=== PATIENT | female | born 1965 | race African-American/Black ===

== ENCOUNTER 2021-12-30 18:05 | Emergency (ER) | payer BC, MEDICAID, OTHER ==
[~2021-12-30] VITALS: Ht 165.1 cm; Wt 115.0 kg
[2021-12-30 18:07] VITALS: BP 180/75
[2021-12-30] MEDS ORDERED: IBUP-2028 MT (22:19)
[2021-12-30] MEDS ORDERED: TOPUD PO (22:19)
[2021-12-30] MEDS ORDERED: LIDO1ADH23 TP (22:19)
[2021-12-30] MEDS ORDERED: METH-653 MT (22:19)
[2021-12-30] MEDS ORDERED: ACETAMINOPHEN 325MG TABLET PO ONE (22:30)
[2021-12-30] MEDS ORDERED: METHOCARBAMOL 750MG TABLET PO SCH (22:30)
[2021-12-30] MEDS ORDERED: IBUPROFEN 400MG TABLET PO ONE (22:30)
== END 2021-12-30 23:09 | disposition home or self-care (01) ==
LOC: ER 18:05
DX: S09.8XXA Other specified injuries of head, initial encounter (principal); M54.89 Other dorsalgia; R03.0 Elevated blood-pressure reading, without diagnosis of hypertension; W07.XXXA Fall from chair, initial encounter; Y93.89 Activity, other specified; Y92.89 Other specified places as the place of occurrence of the external cause; Y99.0 Civilian activity done for income or pay; E66.9 Obesity, unspecified; Z68.41 Body mass index [BMI] 40.0-44.9, adult
CPT/HCPCS: 99284